=== PATIENT | female | born 1985 | race Caucasian/White ===

== ENCOUNTER 2018-07-24 16:29 | Inpatient (IN) | payer MEDICAID ==
[~2018-07-24] VITALS: Ht 149.9 cm; Wt 63.0 kg
[2018-07-24] MEDS ORDERED: acetaminophen 325mg tablet PO STA (16:41)
[2018-07-24] MEDS ORDERED: normal saline 1000ML IV soln IV ONE (16:45)
[2018-07-24 17:14] LABS: BASOPHILS % (AUTO) 0.2 % (0-1); EOSINOPHILS % (AUTO) 0 % (0-6); HEMATOCRIT 39.7 % (35.0-45.0); HEMOGLOBIN 13.1 g/dl (12.0-16.0); LYMPHOCYTES # (AUTO) 1.9 X10'3 (1.1-4.8); LYMPHOCYTES % (AUTO) 12.9 % (21-51); MEAN CORPUSCULAR HEMOGLOBIN 31.4 PG (27.0-31.0); MEAN CORPUSCULAR HGB CONC 33.1 % (33.0-36.5); MEAN CORPUSCULAR VOLUME 94.8 FL (78-98); MONOCYTES # (AUTO) 0.8 X10'3 (0-0.9); MONOCYTES % (AUTO) 5.8 % (2-12); NEUTROPHILS # (AUTO) 11.7 X10'3 (1.8-7.7); NEUTROPHILS % (AUTO) 81.1 % (42-75); PLATELET COUNT 403 X10'3 (140-440); RED BLOOD COUNT 4.19 X10'6 (4.20-5.60); RED CELL DISTRIBUTION WIDTH 13.5 % (11.5-14.5); WHITE BLOOD COUNT 14.5 X10'3 (4.5-11.0)
[2018-07-24 17:29] LABS: ALANINE AMINOTRANSFERASE 118 U/L (12-78); ALBUMIN 3.1 G/DL (3.4-5.0); ALBUMIN/GLOBULIN RATIO 0.7 (1.1-1.5); ALKALINE PHOSPHATASE 134 IU/L (46-116); ANION GAP 12 (8-16); BILIRUBIN,TOTAL 0.3 MG/DL (0.1-1.0); BLOOD UREA NITROGEN 7 MG/DL (7-18); BUN/CREATININE RATIO 9.9 (6.6-38.0); CALCIUM 8.9 MG/DL (8.5-10.1); CHLORIDE 95 MMOL/L (99-107); CREATININE 0.71 MG/DL (0.40-0.90); GLUCOSE 102 MG/DL (70-104); MAGNESIUM 1.6 MG/DL (1.5-2.4); SODIUM 132 MMOL/L (135-145); TOTAL PROTEIN 7.6 G/DL (6.4-8.2); eGFR > 90 ML/MIN
[2018-07-24 17:30] LABS: PARTIAL THROMBOPLASTIN TIME 33 SECONDS (22-32)
[2018-07-24 17:32] LABS: ASPARTATE AMINO TRANSFERASE 50 U/L (10-37); POTASSIUM 3.2 MMOL/L (3.5-5.1)
[2018-07-24] MEDS ORDERED: ketorolac trometh. 30mg/ml inj. IV ONE (17:55)
[2018-07-24] MEDS ORDERED: CefTRIAXone/D5W-Rocephin 1gm 50 ML IV ONE (17:55)
[2018-07-24 18:00] LABS: PLATELET ESTIMATE NORMAL; TOTAL CELLS COUNTED 100
[2018-07-24 18:05] LABS: URINE HCG NEGATIVE (NEG)
[2018-07-24 18:08] LABS: CLARITY,URINE SLIGHTLY CLOUDY (Clear); COLOR,URINE YELLOW (Yellow); GLUCOSE, URINE NEGATIVE (Neg); KETONES,URINE NEGATIVE (Neg); LEUKOCYTE ESTERASE ,URINE NEGATIVE (Neg); NITRITES, URINE NEGATIVE (Neg); OCCULT BLOOD,URINE MODERATE (Neg); PH,URINE 6.5 (4.8-8.0); PROTEIN,URINE NEGATIVE (Neg); UROBILINOGEN,URINE 0.2 E.U/dL (0.2-1.0)
[2018-07-24 18:17] LABS: UA COLLECTION TYPE CLN CATCH MIDSTREAM
[2018-07-24 18:25] LABS: MUCUS STRANDS NONE SEEN /LPF (Neg); SQUAMOUS EPITHELIAL CELL,UR MANY /LPF (FEW); TRANSITIONAL EPI CELLS,URINE FEW /HPF
[2018-07-24 18:26] LABS: BACTERIA,URINE 4+ /HPF (Neg); RBC,URINE 0-2 /HPF (0-2); WBC,URINE 0-4 /HPF (0-4); YEAST FEW /HPF (NEGATIVE)
[2018-07-24] MEDS ORDERED: iohexol 300mg/ml 100ml inj. ONE (18:43)
[2018-07-24] MEDS ORDERED: pneumococcal 23-VAL P-sac vacc 25 mcg/0.5ml vial IMVAC ONE (20:10)
[2018-07-24] MEDS ORDERED: potassium Cl 20mEq in NS 1,000 ML IV SCH (20:36)
[2018-07-24] MEDS ORDERED: ondansetron/PF 4mg/2ml inj IV PRN (20:40)
[2018-07-24] MEDS ORDERED: morphine 2 MG/ML inj. syringe IV PRN ×2 (20:40)
[2018-07-24] MEDS ORDERED: CIPR-259 PO (21:01)
[2018-07-24] MEDS ORDERED: METR500T4 PO (21:01)
[2018-07-24 21:10] VITALS: BP 113/83
[2018-07-24] MEDS ORDERED: ciprofloxacin lact 400MG/200ML 200 ML IV SCH (22:00)
[2018-07-25] MEDS ORDERED: metroNIDAZOLE-Flagyl 500mg/NS 100 ML IV SCH
[2018-07-25] MEDS ORDERED: pneumococcal 23-VAL P-sac vacc 25 mcg/0.5ml vial IMVAC ONE (14:00)
== END 2018-07-24 21:11 | disposition left against medical advice (07) | DRG 720 ==
LOC: ER 16:31 → ED HOLD 20:36
PROVIDERS: ADMIT Internal Medicine; ATTEND Internal Medicine
PROC: BW211ZZ Computerized Tomography (CT Scan) of Abdomen and Pelvis using Low Osmolar Contrast (ICD-10-PCS; principal; 2018-07-24)
DX: A41.9 Sepsis, unspecified organism (principal); E87.1 Hypo-osmolality and hyponatremia; E87.6 Hypokalemia; F12.90 Cannabis use, unspecified, uncomplicated; K52.9 Noninfective gastroenteritis and colitis, unspecified; M54.5 Low back pain; K37 Unspecified appendicitis; R00.0 Tachycardia, unspecified; Z87.891 Personal history of nicotine dependence; Z79.899 Other long term (current) drug therapy
CPT/HCPCS: 36415; 71045; 74177; 80053; 81001; 81025; 83605; 83735; 84145; 85025; 85610; 85730; 87040; 90732; 93005; 96361; 96365; 96375; 99285; G0378; J0696; J0744; J1885; Q9967

== ENCOUNTER 2019-04-11 22:00 | Emergency (ER) | payer MEDICAID ==
[~2019-04-11] VITALS: Ht 149.9 cm; Wt 61.9 kg
[2019-04-11 22:19] VITALS: BP 138/84
[2019-04-11 23:58] LABS: URINE HCG NEGATIVE (NEG)
--- NOTE | 2019-04-12 00:21 | NUR ---
pt discharged home as pt urine result came negative and discharged pt home ,pt mother called as she lives with her mother left message to return to er as mikel avila want to talk to her regarding her urinanalysis.
--- NOTE | 2019-04-12 00:25 | NUR ---
called on pt number but not accepting call at this time tried 4 times,will notify the pa avila.
[2019-04-12 00:32] LABS: CLARITY,URINE CLOUDY (Clear); COLOR,URINE YELLOW (Yellow); GLUCOSE, URINE NEGATIVE (Neg); KETONES,URINE NEGATIVE (Neg); LEUKOCYTE ESTERASE ,URINE NEGATIVE (Neg); NITRITES, URINE NEGATIVE (Neg); OCCULT BLOOD,URINE NEGATIVE (Neg); PROTEIN,URINE TRACE mg/dl (Neg)
[2019-04-12 00:35] LABS: UA COLLECTION TYPE CLN CATCH MIDSTREAM
[2019-04-12 00:37] LABS: BACTERIA,URINE 3+ /HPF (Neg); MUCUS STRANDS MODERATE /LPF (Neg); RBC,URINE NONE SEEN /HPF (0-2); SQUAMOUS EPITHELIAL CELL,UR MANY /LPF (FEW)
== END 2019-04-12 00:40 | disposition home or self-care (01) ==
LOC: ER 22:17
DX: R60.0 Localized edema (principal); F10.99 Alcohol use, unspecified with unspecified alcohol-induced disorder; F15.10 Other stimulant abuse, uncomplicated; F12.90 Cannabis use, unspecified, uncomplicated; Y90.9 Presence of alcohol in blood, level not specified
CPT/HCPCS: 70544; 70551; 81001; 81025; 99283; 99284

== ENCOUNTER 2021-08-04 03:40 | Emergency (ER) | payer MEDICAID ==
[~2021-08-04] VITALS: Ht 152.4 cm; Wt 86.4 kg
[2021-08-04 07:29] VITALS: BP 132/97
[2021-08-04] MEDS ORDERED: BENZ-16 PO (07:38)
== END 2021-08-04 08:28 | disposition home or self-care (01) ==
LOC: ER 03:41
DX: B34.9 Viral infection, unspecified (principal); Z20.822 Contact with and (suspected) exposure to COVID-19; F17.200 Nicotine dependence, unspecified, uncomplicated; F12.90 Cannabis use, unspecified, uncomplicated; Z72.89 Other problems related to lifestyle; Z79.899 Other long term (current) drug therapy
CPT/HCPCS: 71045; 87635; 99284; C9803

== ENCOUNTER 2022-02-23 02:04 | Emergency (ER) | payer MEDICAID ==
[~2022-02-23] VITALS: Ht 152.4 cm; Wt 86.4 kg
[2022-02-23 02:29] VITALS: BP 118/80
[2022-02-23] MEDS ORDERED: CYCL-1 PO (03:18)
[2022-02-23] MEDS ORDERED: ketorolac trometh. 30mg/ml inj. IM ONE (03:20)
[2022-02-23] MEDS ORDERED: cyclobenzaprine 10mg tablet PO ONE (03:20)
[2022-02-23] MEDS ORDERED: HYDROcodone/acetaminophen 5mg/325mg tablet PO ONE (03:20)
[2022-02-23 03:26] LABS: CLARITY,URINE SLIGHTLY CLOUDY (Clear); COLOR,URINE YELLOW (Yellow); GLUCOSE, URINE NEGATIVE (Neg); KETONES,URINE NEGATIVE (Neg); LEUKOCYTE ESTERASE ,URINE NEGATIVE (Neg); NITRITES, URINE NEGATIVE (Neg); OCCULT BLOOD,URINE NEGATIVE (Neg); PROTEIN,URINE NEGATIVE (Neg)
[2022-02-23 03:28] LABS: UA COLLECTION TYPE CLN CATCH MIDSTREAM
[2022-02-23 03:32] LABS: BACTERIA,URINE 4+ /HPF (Neg); MUCUS STRANDS MANY /LPF (Neg); RBC,URINE 0-2 /HPF (0-2); SQUAMOUS EPITHELIAL CELL,UR MANY /LPF (FEW)
== END 2022-02-23 03:55 | disposition home or self-care (01) ==
LOC: ER 02:06
DX: S39.012A Strain of muscle, fascia and tendon of lower back, initial encounter (principal); F17.200 Nicotine dependence, unspecified, uncomplicated; F12.10 Cannabis abuse, uncomplicated; X58.XXXA Exposure to other specified factors, initial encounter; Y93.89 Activity, other specified; Y92.89 Other specified places as the place of occurrence of the external cause; Y99.8 Other external cause status
CPT/HCPCS: 81001; 96372; 99283; J1885

== ENCOUNTER 2022-05-31 11:50 | Emergency (ER) | payer MEDICAID ==
[~2022-05-31] VITALS: Ht 152.4 cm; Wt 81.8 kg
[~2022-05-31 11:50] MED LIST: CYCL-1 PO
[2022-05-31 12:22] LABS: BASOPHILS # (AUTO) 0.1 X10'3 (0-0.2); BASOPHILS % (AUTO) 0.5 % (0-1); EOSINOPHILS # (AUTO) 0.3 X10'3 (0-0.9); EOSINOPHILS % (AUTO) 2.5 % (0-6); HEMATOCRIT 37.6 % (35.0-45.0); HEMOGLOBIN 12.4 g/dl (12.0-16.0); LYMPHOCYTES # (AUTO) 5.4 X10'3 (1.1-4.8); LYMPHOCYTES % (AUTO) 47.3 % (21-51); MEAN CORPUSCULAR HEMOGLOBIN 30.8 PG (27.0-31.0); MEAN CORPUSCULAR VOLUME 93.5 FL (78-98); MEAN PLATELET VOLUME 8.3 FL (7.4-10.4); MONOCYTES # (AUTO) 0.8 X10'3 (0-0.9); MONOCYTES % (AUTO) 6.6 % (2-12); NEUTROPHILS # (AUTO) 4.9 X10'3 (1.8-7.7); NEUTROPHILS % (AUTO) 43.1 % (42-75); PLATELET COUNT 432 X10'3 (140-440); RED BLOOD COUNT 4.02 X10'6 (4.20-5.60); RED CELL DISTRIBUTION WIDTH 13.7 % (11.5-14.5); WHITE BLOOD COUNT 11.4 X10'3 (4.5-11.0)
[2022-05-31] MEDS ORDERED: HYDROcodone/acetaminophen 5mg/325mg tablet PO ONE (12:30)
[2022-05-31] MEDS ORDERED: normal saline 1000ML IV soln IVB ONE (12:30)
[2022-05-31] MEDS ORDERED: ketorolac trometh. 30mg/ml inj. IV ONE (12:30)
[2022-05-31] MEDS ORDERED: LORazepam 2 mg/ml vial IV ONE (12:30)
[2022-05-31] MEDS ORDERED: tamsulosin 0.4mg capsule PO STA (12:30)
[2022-05-31 12:35] LABS: ALANINE AMINOTRANSFERASE 24 U/L (12-78); ALBUMIN 3.8 G/DL (3.4-5.0); ALKALINE PHOSPHATASE 92 IU/L (46-116); ANION GAP 11 (8-16); ASPARTATE AMINO TRANSFERASE 15 U/L (10-37); BILIRUBIN,TOTAL 0.2 MG/DL (0.1-1.0); BLOOD UREA NITROGEN 10 MG/DL (7-18); BUN/CREATININE RATIO 12.8 (6.6-38.0); CALCIUM 8.7 MG/DL (8.5-10.1); CHLORIDE 111 MMOL/L (99-107); CREATININE 0.78 MG/DL (0.40-0.90); GLUCOSE 111 MG/DL (70-104); LIPASE 52 U/L (73-393); POTASSIUM 3.9 MMOL/L (3.5-5.1); SODIUM 146 MMOL/L (135-145); TOTAL CARBON DIOXIDE 24.1 MMOL/L (24-32); TOTAL PROTEIN 7.8 G/DL (6.4-8.2); eGFR 83 ML/MIN
[2022-05-31 14:35] LABS: HCG SERUM QL NEGATIVE
[2022-05-31] MEDS ORDERED: NAPR-56 PO (15:30)
[2022-05-31] MEDS ORDERED: FLO0.4C PO (15:30)
[2022-05-31] MEDS ORDERED: HYDR-3965 PO (15:30)
[2022-05-31] MEDS ORDERED: ONDA4TAB12 PO (15:30)
[2022-05-31 15:51] VITALS: BP 128/92
[2022-05-31 16:15] LABS: CLARITY,URINE CLOUDY (Clear); COLOR,URINE YELLOW (Yellow); GLUCOSE, URINE NEGATIVE (Neg); KETONES,URINE NEGATIVE (Neg); LEUKOCYTE ESTERASE ,URINE NEGATIVE (Neg); NITRITES, URINE NEGATIVE (Neg); OCCULT BLOOD,URINE TRACE-INTACT (Neg); PH,URINE 5.5 (4.8-8.0); PROTEIN,URINE NEGATIVE (Neg); UROBILINOGEN,URINE 0.2 E.U/dL (0.2-1.0)
[2022-05-31 16:17] LABS: UA COLLECTION TYPE CLN CATCH MIDSTREAM
[2022-05-31 16:18] LABS: BACTERIA,URINE 1+ /HPF (Neg); MUCUS STRANDS MANY /LPF (Neg); SQUAMOUS EPITHELIAL CELL,UR MANY /LPF (FEW)
[2022-05-31 16:19] LABS: RBC,URINE 0-2 /HPF (0-2); WBC,URINE 0-4 /HPF (0-4)
== END 2022-05-31 15:59 | disposition home or self-care (01) ==
LOC: ER 11:50
DX: N20.1 Calculus of ureter (principal); F12.90 Cannabis use, unspecified, uncomplicated; Z98.890 Other specified postprocedural states
CPT/HCPCS: 36415; 74176; 80053; 81001; 83690; 84703; 85025; 96374; 99284; J1885; J7030

== ENCOUNTER 2023-01-19 14:47 | Emergency (ER) | payer MEDICAID ==
[~2023-01-19] VITALS: Ht 152.4 cm; Wt 86.4 kg
[~2023-01-19 14:47] MED LIST changes: +ONDA4TAB12 PO
[2023-01-19 14:54] VITALS: BP 137/102
[2023-01-20] MEDS ORDERED: IBUP-1986 PO (13:45)
[2023-01-20] MEDS ORDERED: AMOX-101 PO (13:45)
== END 2023-01-19 18:05 | disposition left against medical advice (07) ==
LOC: ER 14:48
DX: K08.89 Other specified disorders of teeth and supporting structures (principal); Z53.21 Procedure and treatment not carried out due to patient leaving prior to being seen by health care provider
CPT/HCPCS: 99281

== ENCOUNTER 2023-01-20 12:49 | Emergency (ER) | payer MEDICAID ==
[~2023-01-20] VITALS: Ht 152.4 cm; Wt 86.4 kg
[2023-01-20] MEDS ORDERED: AMOX-101 PO (13:45)
[2023-01-20] MEDS ORDERED: IBUP-1986 PO (13:45)
[2023-01-20] MEDS ORDERED: ketorolac trometh inj. 60 MG/2 ML VIAL IM ONE (13:50)
[2023-01-20 13:58] VITALS: BP 152/102
== END 2023-01-20 13:59 | disposition home or self-care (01) ==
LOC: ER 12:49
DX: K08.89 Other specified disorders of teeth and supporting structures (principal)
CPT/HCPCS: 96372; 99283; J1885

== ENCOUNTER 2024-11-05 02:43 | Emergency (ER) | payer MEDICAID ==
[~2024-11-05] VITALS: Ht 149.9 cm; Wt 92.2 kg
[~2024-11-05 02:43] MED LIST changes: +IBUP-1986 PO; +ONDA-243 PO; -ONDA4TAB12 PO
[2024-11-05 02:48] VITALS: BP 156/101; PULSE 116; RESP 18; TEMP 98; O2SAT 99
[2024-11-05] MEDS ORDERED: RIFA300C65 PO (04:18)
[2024-11-05] MEDS ORDERED: SULF1TAB48 PO (04:18)
[2024-11-05] MEDS ORDERED: HYDR12.55 PO (04:21)
[2024-11-05] MEDS: rifampin 300mg capsule PO SCH (04:30)
[2024-11-05] MEDS: HYDROchlorothiazide 25mg tablet PO ONE (04:30)
== END 2024-11-05 04:43 | disposition home or self-care (01) ==
LOC: ER 02:44
DX: L03.116 Cellulitis of left lower limb (principal); R60.0 Localized edema; I10 Essential (primary) hypertension; F17.210 Nicotine dependence, cigarettes, uncomplicated; Z79.1 Long term (current) use of non-steroidal anti-inflammatories (NSAID); Z79.899 Other long term (current) drug therapy; F12.90 Cannabis use, unspecified, uncomplicated; Z72.89 Other problems related to lifestyle
CPT/HCPCS: 99283